=== PATIENT | female | born 1955 | race Caucasian/White ===

== ENCOUNTER 2016-08-01 06:53 | Emergency (ER) | payer OTHER ==
[~2016-08-01] VITALS: Ht 170.2 cm; Wt 76.7 kg
[2016-08-01 07:00] VITALS: BP 111/80
--- NOTE | 2016-08-01 08:46 | PHYS DOC ---
General Chief Complaint: WOUND CHECK Stated Complaint: wound problem Time Seen by MD: 08:31 Source: patient Exam Limitations: no limitations Problems: History of Present Illness Initial Comments Patient is a 60-year-old female who comes to the ED complaining that her wound has reopened. Patient follows with Dr. Owen Schmitz, he initially performed a small biopsy on her left lower abdomen. Pathology report required a larger specimen as the initial was nondiagnostic. Patient underwent elliptical excision of skin lesion July 23 Dr. Salazar's office. She states that she had some mild itching at the incision but overall healing with well and Dr. Owen Schmitz remove sutures on July 30 and applied Mastisol and Steri-Strips. She states that yesterday her Steri- Strips fell off and a little later in the day while she was sitting up her wound reopened. There was no bleeding no discharge she has mild burning at the wound edges of the wound is gaping open. She has no increase in pain no new redness or other symptoms. She has come for evaluation of the wound and closure options. Timing/Duration: 24 hours Severity: moderate Modifying Factors: worse with movement Associated Symptoms: other Allergies: Coded Allergies: No Known Drug Allergies (Unverified , 08/01/16) Past Medical History Medical History: no pertinent history Surgical History: noncontributory Psychosocial History: anxiety Social History Smoker: non-smoker Alcohol: none Drugs: none Review of Systems Constitutional: denies chills, denies fever Respiratory: denies cough, denies shortness of breath Cardiovascular: denies chest pain, denies palpitations Gastrointestinal: denies diarrhea, denies nausea Musculoskeletal: denies back pain, denies joint swelling, denies neck pain Skin: see HPI Psychiatric/Neurological: denies headache, denies numbness, denies paresthesia Physical Exam General Appearance: WD/WN, no apparent distress Respiratory: normal breath sounds, no respiratory distress Gastrointestinal: normal bowel sounds, soft, no organomegaly, other (the left lower abdomen and there is an elliptical surgical wound which has dehisced approximately 3 cm in length wound edges are gapes there is no erythema or discharge in the area is relatively nontender) Extremities: non-tender, normal inspection Neurologic/Psychiatric: no motor/sensory deficits, alert, oriented x 3 Skin: warm/dry (dehisced abdominal wound as above) Orders, Labs, Meds 0834: [facility] Gen Surg opened at 0800, I have made multiple phone calls to the office each time it rings busy. Will continue. Departure Time of Disposition: 08:42 Disposition: 01 HOME, SELF-CARE Diagnosis: wound dehiscence Condition: STABLE Patient Instructions: Wound Dehiscence, [id number] Additional Instructions: As discussed you have a 9:45 AM appointment at [facility] general surgery. [address] [place] [address] called that office with any questions. Upon discharge from the unit go directly to this appointment. Return to ED with new or changing symptoms. MONSTER ALVARADO DO Aug 01, 2016 08:46
== END 2016-08-01 09:01 | disposition home or self-care (01) ==
LOC: ER 06:53
DX: T81.31XA Disruption of external operation (surgical) wound, not elsewhere classified, initial encounter (principal)
CPT/HCPCS: 99283

== ENCOUNTER → 2017-05-20 | Outpatient (CLI) | payer OTHER ==
--- NOTE | 2017-05-20 10:05 | RAD ---
DATE: 05/20/2017 EXAM: MAMMO AMIE SCREENING BILATERAL HISTORY: Routine screening COMPARISON: 09/11/2014 This study was interpreted with the benefit of Computerized Aided Detection (CAD). The breast parenchyma shows scattered fibroglandular densities. Breast parenchyma level B. FINDINGS: 2-D and 3-D tomosynthesis imaging was performed in CC and MLO projections. A small irregular opacity is seen projected over the posterior aspect of the left breast near the midline on the 2-D CC image and on the cc tomogram image #26. This may have been present on previous studies, but better demonstrated on the current exam due to technical factors. It is not clearly visualized in the oblique projection. No other new, enlarging or suspicious breast densities are seen. No suspicious microcalcifications are evident. IMPRESSION: Possible left breast nodule as described above. Diagnostic mammography to include spot compression CC and straight mediolateral views, and possibly left breast ultrasound are suggested for further evaluation. BI-RADS CATEGORY: 0 INCOMPLETE: NEEDS ADDITIONAL IMAGING EVALUATION AND/OR PRIOR MAMMOGRAMS FOR COMPARISON. RECOMMENDED FOLLOW-UP: ADD ADDITIONAL IMAGING PQRS compliance statement: Patient information was entered into a reminder system with a target due date for the next mammogram. Mammography is a sensitive method for finding small breast cancers, but it does not detect them all and is not a substitute for careful clinical examination. A negative mammogram does not negate a clinically suspicious finding and should not result in delay in biopsying a clinically suspicious abnormality. "Our facility is accredited by the [employer] Mammography Program."
== END | disposition home or self-care (01) ==
LOC: MAMMO 08:21
PROVIDERS: ATTEND Obstetrics & Gynecology
DX: Z12.31 Encounter for screening mammogram for malignant neoplasm of breast (principal)
CPT/HCPCS: 77063; 77067

== ENCOUNTER → 2017-05-22 | Outpatient (CLI) | payer OTHER ==
--- NOTE | 2017-05-22 15:31 | RAD ---
DATE: 05/22/2017 EXAM: DIGITAL DIAGNOSTIC LT, BREAST LEFT HISTORY: Suspicious screening study COMPARISON: 05/20/2017, 09/11/2014 This study was interpreted with the benefit of Computerized Aided Detection (CAD). The breast parenchyma shows scattered fibroglandular densities. Breast parenchyma level B. FINDINGS: Additional views of the left breast including a spot compression cc view demonstrate a less discrete, vague density in the area of concern centrally in the left breast, similar to that seen on older studies. This probably represents a patch of normal fibroglandular tissue. Left breast ultrasound, 05/22/2017: A targeted ultrasound exam of the central aspect of the left breast was performed. Normal heterogeneous fibroglandular shadows are present. No mass is identified. IMPRESSION: Stable mammograms without evidence of malignancy. BI-RADS CATEGORY: 2 BENIGN FINDING(S) RECOMMENDED FOLLOW-UP: 12M 12 MONTH FOLLOW-UP PQRS compliance statement: Patient information was entered into a reminder system with a target due date for the next mammogram. Mammography is a sensitive method for finding small breast cancers, but it does not detect them all and is not a substitute for careful clinical examination. A negative mammogram does not negate a clinically suspicious finding and should not result in delay in biopsying a clinically suspicious abnormality. "Our facility is accredited by the [employer] Mammography Program."
== END | disposition home or self-care (01) ==
LOC: MAMMO 13:26
PROVIDERS: ATTEND Obstetrics & Gynecology
DX: R92.8 Other abnormal and inconclusive findings on diagnostic imaging of breast (principal)
CPT/HCPCS: 76641; 77065

== ENCOUNTER → 2018-06-18 | Outpatient (CLI) | payer OTHER ==
--- NOTE | 2018-06-18 09:23 | RAD ---
DATE: 06/18/2018 EXAM: MAMMO AMIE SCREENING BILATERAL HISTORY: Routine screening COMPARISON: 05/22/2017, 05/20/2017 This study was interpreted with the benefit of Computerized Aided Detection (CAD). Breast Density: SCATTERED The breast parenchyma shows scattered fibroglandular densities. Breast parenchyma level B. FINDINGS: 2-D and 3-D tomosynthesis imaging was performed in CC and MLO projections. No new or enlarging breast densities are seen. No suspicious microcalcifications are evident. IMPRESSION: Stable mammograms without evidence of malignancy. BI-RADS CATEGORY: 2 BENIGN FINDING(S) RECOMMENDED FOLLOW-UP: 12M 12 MONTH FOLLOW-UP PQRS compliance statement: Patient information was entered into a reminder system with a target due date for the next mammogram. Mammography is a sensitive method for finding small breast cancers, but it does not detect them all and is not a substitute for careful clinical examination. A negative mammogram does not negate a clinically suspicious finding and should not result in delay in biopsying a clinically suspicious abnormality. "Our facility is accredited by the [employer] Mammography Program."
== END | disposition home or self-care (01) ==
LOC: MAMMO 07:58
PROVIDERS: ATTEND Family Medicine
DX: Z12.31 Encounter for screening mammogram for malignant neoplasm of breast (principal)
CPT/HCPCS: 77063; 77067

== ENCOUNTER 2019-05-08 22:04 | Observation (INO) | payer OTHER ==
[~2019-05-08] VITALS: Ht 170.2 cm; Wt 79.5 kg
[2019-05-08 22:45] LABS: BASO % 0 % (0-3); CALCIUM 8.8 mg/dL (8.5-10.1); CREATININE 1.2 mg/dL (0.6-1.0); EOS # 0.2 x10^3/uL (0.0-0.7); EOS % 2 % (0-3); GFR 45.7; HEMATOCRIT 43.3 % (36.0-47.0); HEMOGLOBIN 14.5 g/dL (12.0-15.5); LYMPH # 2.1 x10^3/uL (1.0-4.8); LYMPH % 25 % (24-48); MEAN CORPUSCULAR HEMOGLOBIN 32 pg (25-35); MEAN CORPUSCULAR HGB CONC 34 g/dL (31-37); MEAN CORPUSCULAR VOLUME 95 fL (79-100); MONO # 0.7 x10^3/uL (0.0-1.1); MONO % 9 % (0-9); NEUT # 5.4 x10^3uL (1.8-7.7); NEUT % 64 % (31-73); PLATELET COUNT 283 x10^3/uL (140-400); POTASSIUM 4.1 mmol/L (3.5-5.1); RED BLOOD COUNT 4.58 x10^6/uL (3.50-5.40); RED CELL DISTRIBUTION WIDTH 13.4 % (11.5-14.5); WHITE BLOOD COUNT 8.4 x10^3/uL (4.0-11.0)
[2019-05-08] MEDS ORDERED: LIDO:MAALOX 1:1 20 ML SINGLE DOSE. PO ONE (22:45)
[2019-05-08 22:50] LABS: ALBUMIN 3.6 g/dL (3.4-5.0); ALBUMIN/GLOBULIN RATIO 1.4 (1.0-1.7); TOTAL BILIRUBIN 0.2 mg/dL (0.2-1.0); TOTAL PROTEIN 6.2 g/dL (6.4-8.2)
--- NOTE | 2019-05-08 22:59 | RAD ---
AP chest. HISTORY: Chest pain AP view was taken of the chest. Lungs are clear. Heart is normal in size. There is no pleural effusion. IMPRESSION: 1. No acute chest disease. Electronically signed by: Gus Amador MD (05/08/2019 10:56 PM) [id number]
--- NOTE | 2019-05-08 23:06 | EKG ---
[address] [address] Test Date: 2019-05-08 Test Time: 22:14:26 Pat Name: GOLDY SELF Department: Room: Gender: F Audiovisual Equipment Operator: : 1955 Requested By: SERVANDO ORNELAS Order Number: [id number] Reading MD: Measurements Intervals [place] Rate: 75 P: 90 IA: 150 QRS: 65 QRSD: 86 T: 57 QT: 386 QTc: 434 Interpretive Statements SINUS RHYTHM NO SPECIFIC ECG ABNORMALITIES RI6.01 No previous ECG available for comparison
--- NOTE | 2019-05-09 00:10 | RAD ---
Ultrasound the abdomen limited. HISTORY: Right upper quadrant pain gallstones on bedside ultrasound Ultrasound was used to evaluate the gallbladder right upper quadrant of the abdomen. Pancreatic duct at the body the pancreas was upper normal at 2.4 mm. No definite mass noted in the head or proximal body the pancreas. Tail of pancreas is obscured. Liver is within normal limits in size and appearance. There is a 1.2 cm echogenic focus in the right liver suggesting a hemangioma. Vena cava at the liver was unremarkable. There is flow in the portal vein with color imaging and Doppler. There are multiple gallstones in the gallbladder. Gallbladder wall is not definitively thickened. Right kidney was 10.2 cm in length without a mass or hydronephrosis. Common duct was normal measuring 3 mm. IMPRESSION: 1. Multiple gallstones in the gallbladder. 2. No definite wall thickening of the gallbladder. 3. Small echogenic liver lesion probable hemangioma. 4. Incomplete evaluation of the pancreas, pancreatic duct upper normal. 5. No hydronephrosis noted in the right kidney. Electronically signed by: Gus Amador MD (05/09/2019 12:07 AM) [id number]
[2019-05-09] MEDS ORDERED: ONDANSETRON PF 4 MG/2 ML VIAL. IV PRN (00:15)
--- NOTE | 2019-05-09 00:29 | PHYS DOC ---
Past History Past Medical History: Anxiety, Depression Past Surgical History: Other Alcohol Use: None Drug Use: None Adult General Chief Complaint Chief Complaint: ABDOMINAL PAIN HPI HPI Patient is a 63-year-old female presenting with chest pain. She describes it as underneath both ribs and also in the epigastric area she was not quite sure if it was in her stomach or her chest but over the last few hours she thinks it is more in her chest. It is intermittent in nature is actually been coming and going for 2 weeks now. It got worse today around noon it seemed to be a little worse when [place] She was little nauseous just not that hungry but she was able to eat something. No previous abdominal surgeries she is a former smoker father had a heart problem in his 80s otherwise no significant past medical history she is otherwise well. She describes an intermittent squeezing pain across bilateral ribs that is coming and going throughout the day and also the ER visit. It is happening both at rest and with walking. Review of Systems Review of Systems Constitutional: Denies fever or chills [] Eyes: Denies change in visual acuity, redness, or eye pain [] HENT: Denies nasal congestion or sore throat [] Respiratory: Musculoskeletal: Denies back pain or joint pain [] Integument: Denies rash or skin lesions [] Neurologic: Denies headache, focal weakness or sensory changes [] Endocrine: Denies polyuria or polydipsia [] All other systems were reviewed and found to be within normal limits, except as documented in this note. Current Medications Current Medications Current Medications Medications (Trade) Dose Ordered Sig/[facility] Start Time Stop Time Status Last Admin Dose Admin Multi-Ingredient Mouthwash/Gargle (Gi Cocktail) 20 ml 1X ONCE 05/08/19 22:45 05/08/19 22:46 DC 05/08/19 22:59 20 ML Allergies Allergies Allergies Coded Allergies Type Severity Reaction Last Updated Verified ibuprofen Allergy Severe Rash 05/08/19 Yes Physical Exam Physical Exam Constitutional: Well developed, well nourished, no acute distress, non-toxic appearance. [] HENT: Normocephalic, atraumatic, bilateral external ears normal, oropharynx moist, no oral exudates, nose normal. [] Eyes: PERRLA, EOMI, conjunctiva normal, no discharge. [] Neck: Normal range of motion, no tenderness, supple, no stridor. [] Cardiovascular:Heart rate regular rhythm, no murmur [] Lungs & Thorax: Bilateral breath sounds clear to auscultation [] Abdomen: Bowel sounds normal, soft, mild tenderness to palpation in the epigastrium but negative Adair's Extremities: No tenderness, no cyanosis, no clubbing, ROM intact, no edema. [] Neurologic: Alert and oriented X 3, normal motor function, normal sensory function, no focal deficits noted. [] Psychologic: Affect normal, judgement normal, mood normal. [] Current Patient Data Vital Signs Vital Signs Date Time Temp Pulse Resp B/P (MAP) Pulse Ox O2 Delivery O2 Flow Rate FiO2 05/08/19 22:04 88 18 145/77 (99) 97 Room Air Lab Results Laboratory Tests Test 05/08/19 22:17 White Blood Count 8.4 x10^3/uL (4.0-11.0) Red Blood Count 4.58 x10^6/uL (3.50-5.40) Hemoglobin 14.5 g/dL (12.0-15.5) Hematocrit 43.3 % (36.0-47.0) Mean Corpuscular Volume 95 fL (79-100) Mean Corpuscular Hemoglobin 32 pg (25-35) Mean Corpuscular Hemoglobin Concent 34 g/dL (31-37) Red Cell Distribution Width 13.4 % (11.5-14.5) Platelet Count 283 x10^3/uL (140-400) Neutrophils (%) (Auto) 64 % (31-73) Lymphocytes (%) (Auto) 25 % (24-48) Monocytes (%) (Auto) 9 % (0-9) Eosinophils (%) (Auto) 2 % (0-3) Basophils (%) (Auto) 0 % (0-3) Neutrophils # (Auto) 5.4 x10^3uL (1.8-7.7) Lymphocytes # (Auto) 2.1 x10^3/uL (1.0-4.8) Monocytes # (Auto) 0.7 x10^3/uL (0.0-1.1) Eosinophils # (Auto) 0.2 x10^3/uL (0.0-0.7) Basophils # (Auto) 0.0 x10^3/uL (0.0-0.2) Sodium Level 143 mmol/L (136-145) Potassium Level 4.1 mmol/L (3.5-5.1) Chloride Level 107 mmol/L (98-107) Carbon Dioxide Level 27 mmol/L (21-32) Anion Gap 9 (6-14) Blood Urea Nitrogen 21 mg/dL (7-20) H Creatinine 1.2 mg/dL (0.6-1.0) H Estimated GFR (Cockcroft-Gault) 45.7 BUN/Creatinine Ratio 18 (6-20) Glucose Level 130 mg/dL (70-99) H Calcium Level 8.8 mg/dL (8.5-10.1) Total Bilirubin 0.2 mg/dL (0.2-1.0) Aspartate Amino Transferase (AST) 21 U/L (15-37) Alanine Aminotransferase (ALT) 24 U/L (14-59) Alkaline Phosphatase 51 U/L (46-116) Troponin I Quantitative 0.018 ng/mL (0-0.055) Total Protein 6.2 g/dL (6.4-8.2) L Albumin 3.6 g/dL (3.4-5.0) Albumin/Globulin Ratio 1.4 (1.0-1.7) Lipase 123 U/L (73-393) EKG EKG EKG showed sinus rhythm not tachycardic no ischemia seen [] Radiology/Procedures Radiology/Procedures [] Ultrasound was used to evaluate the gallbladder right upper quadrant of the abdomen. Pancreatic duct at the body the pancreas was upper normal at 2.4 mm. No definite mass noted in the head or proximal body the pancreas. Tail of pancreas is obscured. Liver is within normal limits in size and appearance. There is a 1.2 cm echogenic focus in the right liver suggesting a hemangioma. Vena cava at the liver was unremarkable. There is flow in the portal vein with color imaging and Doppler. There are multiple gallstones in the gallbladder. Gallbladder wall is not definitively thickened. Right kidney was 10.2 cm in length without a mass or hydronephrosis. Common duct was normal measuring 3 mm. IMPRESSION: 1. Multiple gallstones in the gallbladder. 2. No definite wall thickening of the gallbladder. 3. Small echogenic liver lesion probable hemangioma. 4. Incomplete evaluation of the pancreas, pancreatic duct upper normal. 5. No hydronephrosis noted in the right kidney. Electronically signed by: Gus Amador MD (05/09/2019 12:07 AM) [id number] DICTATED AND SIGNED BY: GUS AMADOR MD DATE: 05/09/19 0007 CC: RAIZA PABON MD; SERVANDO ORNELAS MD ~ Impressions: AP view was taken of the chest. Lungs are clear. Heart is normal in size. There is no pleural effusion. IMPRESSION: 1. No acute chest disease. Electronically signed by: Gus Amador MD (05/08/2019 10:56 PM) [id number] DICTATED AND SIGNED BY: GUS AMADOR MD DATE: 05/08/19 2256 CC: RAIZA PABON MD; SERVANDO ORNELAS MD ~ Course & Med Decision Making Course & Med Decision Making Pertinent Labs and Imaging studies reviewed. (See chart for details) [] 63-year-old female pretty healthy overall does have a remote smoking history presenting with intermittent squeezing upper abdominal lower chest pain. Differential was broad considered cardiac etiology heart score is a H 2 E 0 A 1 R 1 T 0. Given this and the concern for possible unstable angina with stuttering intermittent symptoms in the emergency room I talked with the patient back and forth about options including home without close outpatient follow-up versus admission for stress testing. She prefers the latter I think this is reasonable. Also consider upper abdominal etiology ultrasound shows gallstones but no other cholecystitis findings. Patient appears comfortable in the emergency room patient will be admitted to the service of Dr. RUSH, serial troponins and likely stress imaging Dragon Disclaimer Dragon Disclaimer This electronic medical record was generated, in whole or in part, using a voice recognition dictation system. Departure Departure: Impression: Primary Impression: Chest pain Disposition: ADMITTED INPATIENT Admitting Physician: Elina Rush Condition: STABLE Referrals: RAIZA PABON MD (PCP) SERVANDO ORNELAS MD May 09, 2019 00:29
[2019-05-09 01:05] VITALS: BP 112/62
[2019-05-09] MEDS ORDERED: BUPR300T92 PO (02:08)
[2019-05-09] MEDS ORDERED: CITA20TA6 PO (02:08)
[2019-05-09 05:00] VITALS: BP 110/67
[2019-05-09] MEDS ORDERED: buPROPion XL 300 MG TAB.ER.24H. PO SCH (09:00)
[2019-05-09] MEDS ORDERED: CITALOPRAM 20 MG TABLET. PO SCH (09:00)
[2019-05-09 11:00] VITALS: BP 136/90
[2019-05-09] MEDS ORDERED: SINCALIDE 1.59 MCG in IV NORMAL SALINE 50ML 30 ML IV ONE (14:00)
--- NOTE | 2019-05-09 15:14 | RAD ---
Hepatobiliary scan with gallbladder ejection fraction HISTORY: Abdominal pain. Cholelithiasis. Epigastric pain. Right upper quadrant pain. TECHNIQUE: 5.5 mCi technetium 99m Choletec intravenous. Gallbladder stimulation images were also acquired after administration intravenously 1.6 mcg sincalide. FINDINGS: There is normal uptake and excretion of the agent by the liver with prompt filling of the bile ducts, gallbladder and small bowel excluding cystic duct and common bile duct obstruction. Following administration of the CCK analog there is limited gallbladder contraction and emptying with an estimated ejection fraction of 13 percent which is abnormally low. Normal ejection fraction is greater than 35 percent. IMPRESSION: Cystic duct is patent. Gallbladder ejection fraction is abnormally low measuring 13% indicating gallbladder dyskinesia, can be associated with chronic cholecystitis. Electronically signed by: Troy Bonilla MD (05/09/2019 3:11 PM) [id number]
[2019-05-09 15:51] VITALS: BP 122/66
--- NOTE | 2019-05-09 17:13 | SSS ---
ADMIT DATE: 05/09/2019 HISTORY OF PRESENT ILLNESS: The patient is a 63-year-old female patient who presented to the Emergency Room with a complaint of abdominal pain, which was mostly in the epigastric area. She describes it as ____ also in the epigastric area. The pain is not associated with any shortness of breath, cough or phlegm. Denied any nausea or vomiting. She has never had any previous abdominal surgery and has never had similar problem like this before. She was extensively evaluated in the Emergency Room and her lab work was mostly unremarkable. She had 2 sets of cardiac enzymes, showed troponin to be less than 0.018 and her chest x-ray was unremarkable. She did have abdominal ultrasound, which basically showed that there were multiple gallstones in the bladder, but no definite wall thickening of the gallbladder, some echogenic liver lesion, probably hemangioma and on complete evaluation of the pancreas, pancreatic duct was upper normal. No hydronephrosis noted in the right kidney and because of the finding and these complaints, we did actually HIDA scan, which basically showed that there is normal uptake and excretion of agent for the liver with prompt filling of the bile duct, gallbladder and small bowel excluding cystic duct and common bile duct obstruction following administration of cholecystectomy and a low grade limited gallbladder contraction and emptying with an estimated ejection fraction of 15%, which is abnormally low with normal ejection fraction is greater than 35% and therefore the patient was discharged with an appointment to follow with Dr. Flores, the general surgeon for possible evaluation and perhaps laparoscopic cholecystectomy. PAST MEDICAL HISTORY: Essentially unremarkable except for depression and anxiety. PAST SURGICAL HISTORY: Significant for tonsillectomy and septoplasty. ALLERGIES: She is allergic to IBUPROFEN. MEDICATIONS: She is currently on following medications: She is on Wellbutrin 300 mg once a day and citalopram 20 mg once a day. FAMILY HISTORY: She is the only child. Her father at the age of 90 because of COPD. Mother is still alive at the age of 87. SOCIAL HISTORY: She is , has 1 son and 1 daughter. She quit smoking 25 years ago. She does not drink alcohol or use any recreational drugs. She teaches fifth grader. REVIEW OF SYSTEMS: As per history of present illness. PHYSICAL EXAMINATION GENERAL: When I examined her this afternoon, she looked well and was clearly in no apparent respiratory distress. No pallor, jaundice, cyanosis or thyromegaly. No jugular venous distention. No lower limb edema. VITAL SIGNS: Her heart rate was 62, blood pressure was 110/67, temperature was 98.5, respiratory rate was 16 and oxygen saturation was 97%. HEAD, EYES, EARS, NOSE AND THROAT: Normocephalic, atraumatic. NECK: Supple. HEART: Showed normal first and second heart sounds. No gallop or murmur. CHEST: Clear to auscultation. No crepitation or rhonchi. ABDOMEN: Distended, soft, nontender. NEUROLOGIC: She was awake, alert, responding appropriately. All cranial nerves intact. EXTREMITIES: She moves extremities without difficulty. She ambulates without assistance or assistive devices. LABORATORY DATA: Her white cell count was 8400, hemoglobin 14.5, hematocrit 43, MCV was 95 and platelet count 283,000. Her chemistry showed serum sodium 143, potassium 4.1, chloride 107, bicarbonate 27, anion gap of 9, BUN 21, creatinine 1.2, estimated GFR was 46 mL per minute. Her glucose 130, calcium was 8.8. Total bilirubin, AST, ALT, alkaline phosphatase were normal. Total protein 6.2, albumin 3.5. Her lipase was 123. She had two sets of troponins, one was 0.018 and 0.017. Her EKG was sinus rhythm with no evidence of any ischemia. Her abdominal ultrasound showed multiple gallstones in gallbladder. No definite wall thickening of the gallbladder and HIDA scan showed that the patient's ejection fraction was less than 15% consistent with biliary dyskinesia. ASSESSMENT AND PLAN: The patient will be discharged home with diagnosis of biliary dyskinesia. An appointment to be made for her to be seen by Dr. Flores. SUMEET TRAVIS MD DR: SHERRILL/chris JOB#: [id number] / [id number]
== END 2019-05-09 16:28 | disposition home or self-care (01) ==
LOC: ER 22:04 → ICU 05-09
PROVIDERS: ADMIT Internal Medicine; ATTEND Internal Medicine
DX: K82.8 Other specified diseases of gallbladder (principal); R07.89 Other chest pain; F41.8 Other specified anxiety disorders; Z87.891 Personal history of nicotine dependence
CPT/HCPCS: 36415; 71045; 76705; 78227; 80053; 83690; 84484; 85025; 93005; 96374; 99285; A9537; G0378; J2805; G0379

== ENCOUNTER 2020-05-27 14:51 | Emergency (ER) | payer OTHER ==
[~2020-05-27] VITALS: Ht 170.2 cm; Wt 78.8 kg
[~2020-05-27 14:51] MED LIST: BUPR300T92 PO; CITA20TA6 PO
[2020-05-27 15:00] VITALS: BP 130/83
[2020-05-27] MEDS ORDERED: HYDROcodone/APAP 5/325MG 1 TAB TABLET PO ONE (15:15)
--- NOTE | 2020-05-27 15:35 | PHYS DOC ---
Past History Past Medical History: Anxiety, Depression Past Surgical History: No Surgical History Alcohol Use: None Drug Use: None General Adult EDM: Chief Complaint: SHOULDER INJURY HPI: HPI: Patient is a 64-year-old female who presents with right shoulder pain. Patient states that she was walking her son's dog when she tripped over the dog fell onto her right shoulder. 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 Patient denies any other injuries. Patient denies hitting her head or losing consciousness. Denies taking anything for pain prior to arrival. Review of Systems: Review of Systems: Constitutional: Denies fever or chills Eyes: Denies change in visual acuity HENT: Denies nasal congestion or sore throat Respiratory: Denies cough or shortness of breath Cardiovascular: Denies chest pain or edema GI: Denies abdominal pain, nausea, vomiting, bloody stools or diarrhea : Denies dysuria Musculoskeletal: Denies back pain, reports right shoulder pain Integument: Denies rash Neurologic: Denies headache, focal weakness or sensory changes Endocrine: Denies polyuria or polydipsia Lymphatic: Denies swollen glands Psychiatric: Denies depression or anxiety Current Medications: Current Meds: Current Medications Medications (Trade) Dose Ordered Sig/Daniel Start Time Stop Time Status Last Admin Dose Admin Acetaminophen/ Hydrocodone Bitart (Lortab 5/325) 1 tab 1X ONCE 05/27/20 15:15 05/27/20 15:23 DC 05/27/20 15:29 1 TAB Allergies: Allergies: Allergies Coded Allergies Type Severity Reaction Last Updated Verified ibuprofen Allergy Severe Rash 05/08/19 Yes Physical Exam: PE: Constitutional: Well developed, well nourished, no acute distress, non-toxic appearance. [] HENT: Normocephalic, atraumatic, bilateral external ears normal, oropharynx mo ist, no oral exudates, nose normal. [] Eyes: PERRLA, EOMI, conjunctiva normal, no discharge. [] Neck: Normal range of motion, no tenderness, supple, no stridor. [] Cardiovascular:Heart rate regular rhythm, no murmur [] Lungs & Thorax: Bilateral breath sounds clear to auscultation [] Abdomen: Bowel sounds normal, soft, no tenderness, no masses, no pulsatile masses. [] Skin: Warm, dry, no erythema, no rash. [] Back: No tenderness, no CVA tenderness. [] Extremities: No tenderness, no cyanosis, no clubbing, ROM intact, no edema. [] Neurologic: Alert and oriented X 3, normal motor function, normal sensory function, no focal deficits noted. [] Psychologic: Affect normal, judgement normal, mood normal. [] Current Patient Data: Vital Signs: Vital Signs Date Time Temp Pulse Resp B/P (MAP) Pulse Ox O2 Delivery O2 Flow Rate FiO2 05/27/20 15:00 88 18 130/83 (99) 98 Room Air EKG: EKG: [] Radiology/Procedures: Radiology/Procedures: []Study: XR SHOULDER_RIGHT 2+ VIEWS Indication: Right shoulder injury. Pain. Comparison: None. Findings: Abnormal widening of the acromioclavicular joint which measures up to 1.1 cm. Cephalad malpositioning of the distal end of the clavicle relative to the acromion by approximately 1.5 cm. The coracoclavicular distance measures 1.7 cm which is above the upper range of normal typically considered 1.3 cm. Glenohumeral joint alignment is maintained. No displaced fracture. Impression: Grade 3 acromioclavicular joint separation to including widening of the coracoclavicular interval indicting ligamentous disruption. Correlate with physical exam to determine if this is acute. Electronically signed by: MAGGIE SEPULVEDA MD (05/27/2020 3:34 PM) [id number] Heart Score: C/O Chest Pain: No Risk Factors: Risk Factors: DM, Current or recent (<one month) smoker, HTN, HLP, family history of CAD, obesity. Risk Scores: Score 0 - 3: 2.5% MACE over next 6 weeks - Discharge Home Score 4 - 6: 20.3% MACE over next 6 weeks - Admit for Clinical Observation Score 7 - 10: 72.7% MACE over next 6 weeks - Early Invasive Strategies Course & Med Decision Making: Course & Med Decision Making Pertinent Labs and Imaging studies reviewed. (See chart for details) [] Shoulder x-ray ordered. Hydrocodone given for pain. Patient is unable to patient unable to abduct or adduct arm due to pain.shoulder x-ray shows grade 3 acromioclavicular joint separation to including widening of the coracoclavicular interval indicting ligamentous disruption. Patient instructed to rest, ice, and wear sling. Patient to call Ortho tomorrow for consultation. Aleve at home for pain. Patient called in after leaving and asked for pain medication for her arm. "when i was driving home I started having a lot of pain". Patient given prescription for Hydrocodone until she can follow up with PCP. Kenny Disclaimer: Kenny Disclaimer: This electronic medical record was generated, in whole or in part, using a voice recognition dictation system. Departure Departure: Impression: Primary Impression: Acromioclavicular joint separation, type 3 Qualified Codes: S43.101A - Unspecified dislocation of right acromioclavicular joint, initial encounter Disposition: 01 DC HOME SELF CARE/HOMELESS Condition: STABLE Referrals: RAIZA PABON MD (PCP) Patient Instructions: Acromioclavicular Injuries, [id number] Additional Instructions: You were seen in the emergency room after falling and injuring her right shoulder. Your xray shows Acromioclavicular Injury, Type 3. Its important to Rest, use ice to shoulder and wear shoulder sling. You need to contact orthopedics and follow up for further evaluation. You can take ibuprofen for discomfort. Please return to the ED for worsening symptoms or pain. [facility] [address] [facility] [address] EMERGENCY DEPARTMENT GENERAL DISCHARGE INSTRUCTIONS Thank you for coming to [facility] (ED) today and trusting us with you care. We trust that you had a positivie experience in our Emergency Department. If you wish to speak to the department management, you may call the director at [phone]. YOUR FOLLOW UP INSTRUCTIONS ARE FOLLOWS: 1. Do you have a private Doctor? If you do not have a private doctor, please ask for a resource list of physicians or clinics that may be able to assist you with follow up care. 2. The Emergency Physician has interpreted your x-rays. The X-Ray specialist will also review them. If there is a change in the findings, you will be notified in 48 hours when at all possible. 3. A lab test or culture has been done, your results will be reviewed and you will be notified if you need a change in treatment. ADDITIONAL INSTRUCTIONS AND INFORMATION: 1. Your care today has been supervised by a physician who is specially trained in emergency care. Many problems require more than one evaluation for a complete diagnosis and treatment. We recommend that you schedule your follow up appointment as recommended to ensure complete treatment of you illness or injury. If you are unable to obtain follow up care and continue to have a problem, or if your condition worsens, we recommend that you return to the ED. 2. We are not able to safely determine your condition over the phone nor are we able to give sound medical advice over the phone. For these safety reasons, if you call for medical advice we will ask you to come to the ED for further evaluation. 3. If you have any questions regarding these discharge instructions please call the ED at [phone]. SAFETY INFORMATION: In the interest of safety, wellness, and injury prevention; we encourage you to wear your sealbelt, if you smoke; quite smoking, and we encourage family to use a protective helmet for bicycling and other sporting events that present an increased risk for head injury. IF YOUR SYMPTOMS WORSEN OR NEW SYMPTOMS DEVELOP, OR YOU HAVE CONCERNS ABOUT YOUR CONDITION; OR IF YOUR CONDITION WORSENS WHILE YOU ARE WAITING FOR YOUR FOLLOW UP APPOINTMENT; EITHER CONTACT YOUR PRIMARY CARE DOCTOR, THE PHYSICIAN WHOSE NAME AND NUMBER YOU WERE GIVEN, OR RETURN TO THE ED IMMEDIATELY. Scripts Hydrocodone Bit/Acetaminophen (HYDROCODONE-APAP 5-325 ) 1 Each Tablet 1 TAB PO PRN Q6HRS PRN for PAIN for 2 Days, #8 TAB 0 Refills Prov: NUBIA RIVERA APRN 05/27/20 NUBIA RIVERA APRN May 27, 2020 15:34
--- NOTE | 2020-05-27 15:37 | RAD ---
Study: XR SHOULDER_RIGHT 2+ VIEWS Indication: Right shoulder injury. Pain. Comparison: None. Findings: Abnormal widening of the acromioclavicular joint which measures up to 1.1 cm. Cephalad malpositioning of the distal end of the clavicle relative to the acromion by approximately 1.5 cm. The coracoclavic ular distance measures 1.7 cm which is above the upper range of normal typically considered 1.3 cm. G lenohumeral joint alignment is maintained. No displaced fracture. Impression: Grade 3 acromioclavicular joint separation to including widening of the coracoclavicular interval ind icting ligamentous disruption. Correlate with physical exam to determine if this is acute. Electronically signed by: MAGGIE SEPULVEDA MD (05/27/2020 3:34 PM) [id number]
[2020-05-27] MEDS ORDERED: HYDR-2155 PO (18:25)
== END 2020-05-27 17:00 | disposition home or self-care (01) ==
LOC: ER 14:51
DX: S43.101A Unspecified dislocation of right acromioclavicular joint, initial encounter (principal); F41.9 Anxiety disorder, unspecified; F32.9 Major depressive disorder, single episode, unspecified; Z88.6 Allergy status to analgesic agent; W01.0XXA Fall on same level from slipping, tripping and stumbling without subsequent striking against object, initial encounter; Y93.01 Activity, walking, marching and hiking; Y92.89 Other specified places as the place of occurrence of the external cause; Y99.8 Other external cause status
CPT/HCPCS: 73030; 99283

== ENCOUNTER → 2020-09-07 | Outpatient (CLI) | payer OTHER ==
[~2020-09-07] MED LIST changes: +HYDR-2155 PO
--- NOTE | 2020-09-07 14:01 | RAD ---
MG BILAT SCREEN+AMIE 09/07/2020 9:35 AM INDICATION: Asymptomatic screening mammogram. COMPARISON: 06/18/2018, 05/20/2017 TECHNIQUE: 3D tomosynthesis was performed in CC and MLO projections. 2D views were obtained from the 3D data. CAD was utilized as needed. FINDINGS: Breast density: Category B: There are scattered areas of fibroglandular density. Right breast: There are no suspicious microcalcifications, masses or areas of architectural distortio n. Left breast: There are no suspicious microcalcifications, masses or areas of architectural distortion . Bilateral mammogram is compared to prior examinations appears unchanged. IMPRESSION: Negative bilateral mammogram. BI-RADS category: 1; Negative Recommendations: Recommend annual screening mammography in one year. Electronically signed by: Leah Posada MD (09/07/2020 1:58 PM) [id number]
== END ==
LOC: MAMMO 09:16
PROVIDERS: ATTEND Family Medicine
DX: Z12.31 Encounter for screening mammogram for malignant neoplasm of breast (principal)
CPT/HCPCS: 77063; 77067